=== PATIENT | female | born 1995 | race Hispanic/Latino ===

== ENCOUNTER 2018-11-06 23:27 | Observation (INO) | payer OTHER ==
[~2018-11-06] VITALS: Ht 162.6 cm; Wt 96.6 kg
[2018-11-06 23:58] VITALS: BP 109/54
--- NOTE | 2018-11-06 23:58 | NUR ---
patient is a new admit that arrived via stretcher. patient is awake and talking. patient has been assisted into the bed. bed is in the lowest position and call dodge is within reach. will continue to monitor patient.
[2018-11-07] VITALS: BP 109/54
[2018-11-07] MEDS: SODIUM CHLORIDE 0.9% 1000ML 1,000 ML IV SCH ×3 (01:36→10:38)
[2018-11-07 04:00] VITALS: BP 122/66
--- NOTE | 2018-11-07 06:23 | NUR ---
Spoke with Dr Wagner over the telephone and informed him of the routine consultation. acknowledged consultation.
--- NOTE | 2018-11-07 06:42 | NUR ---
report given to day nurse. patient is resting comfortably in bed. bed is in lowest position and call dodge is within reach.
[2018-11-07 06:46] LABS: BASOPHILS % 0.3 % (0.0-1.0); EOSINOPHILS % 0.2 % (0.0-6.0); HEMATOCRIT 35.3 % (34.2-44.1); HEMOGLOBIN 11.8 g/dL (12.0-16.0); LYMPHOCYTES # (AUTO) 1.1 (1.0-3.2); LYMPHOCYTES % 8.8 % (18.0-39.1); MEAN CORPUSCULAR HEMOGLOBIN 28.4 pg (28-32); MEAN CORPUSCULAR HGB CONC 33.4 g/dL (31-35); MEAN CORPUSCULAR VOLUME 85.1 fL (81-99); MONOCYTES # (AUTO) 0.7 (0.2-0.8); MONOCYTES % 5.8 % (4.4-11.3); NEUTROPHILS # (AUTO) 10.1 (2.1-6.9); NEUTROPHILS % 84.2 % (38.7-80.0); PLATELET COUNT 320 x10e3/uL (140-360); RED BLOOD COUNT 4.15 x10e6/uL (3.6-5.1); RED CELL DISTRIBUTION WIDTH 12.6 % (11.7-14.4)
[2018-11-07 06:51] LABS: BLOOD UREA NITROGEN 8 mg/dL (7-26); BUN/CREATININE RATIO 10 (6-25); CALCIUM 8.5 mg/dL (8.4-10.2); CARBON DIOXIDE 22 mmol/L (22-29); CHLORIDE 111 mmol/L (98-107); CREATININE, SERUM 0.78 mg/dL (0.57-1.11); EST GLOMERULAR FILTRATION RATE > 60 ML/MIN (60-); GLUCOSE 106 mg/dL (74-118); SODIUM 139 mmol/L (136-145)
--- NOTE | 2018-11-07 09:20 | NUR ---
Visit made by the Spiritual Care Department Pastoral Visitor, Geneva Grossman. PV provided pastoral presence, hospitality, and supportive listening. Pastoral Visitor informed pt/family of the scope of [facility] and availability. VALENCIA QUEEN Recovery Operator Helper Spiritual Care Department O: [phone] Pager: [phone] ([phone] number calling from)
[2018-11-07 09:42] VITALS: BP 110/58
[2018-11-07 09:45] VITALS: BP 110/58
[2018-11-07 11:51] LABS: FREE THYROXINE INDEX 2.3289 (1.4-3.8); THYROID STIMULATING HORMONE 1.04 uIU/mL (0.350-4.940)
[2018-11-07 12:00] VITALS: BP 117/73
--- NOTE | 2018-11-07 13:40 | Diagnostic Imaging Report ---
EXAM: Complete Abdominal Ultrasound INDICATION: ^PAIN ^[id number] ^1255 COMPARISON: None. TECHNIQUE: Transverse and longitudinal images of the upper abdomen were obtained. FINDINGS: Liver: Size: 14.8 cm in the right midclavicular line, normal Appearance: Increased echogenicity, smooth contour Mass: No focal masses Spleen: Size: 12.0 cm in length, upper limit of normal Echogenicity: Normal Mass: No focal masses Gallbladder: Stones/Sludge: Small amount of sludge. No echogenic stones. Wall: 0.2 cm Appearance: No wall thickening, pericholecystic fluid or hydrops. Sonographic Amador's Sign: Negative Bile Ducts: Intrahepatic Ducts: No dilatation Extrahepatic Ducts: Common bile duct measures 0.3 cm, no dilatation Pancreas: Obscured by overlying bowel gas. Kidneys: Length: Right 11.7 cm Left 10.8 cm Echogenicity: Normal Collecting System: No hydronephrosis Stone: None Cyst/Mass: None Vessels: Aorta: Visualized portions are normal Inferior Vena Cava: Obscured by overlying bowel gas. Main Portal Vein: 1.1 cm, normal size with hepatopetal flow. Free Fluid: No ascites or pleural effusion IMPRESSION: 1. Small amount of sludge in the gallbladder lumen. No sonographic evidence of cholelithiasis or cholecystitis. 2. Diffusely increased echogenicity of the hepatic parenchyma, consistent with steatosis. Signed by: Dr. Mynor Boyle M.D. on 11/07/2018 1:37 PM
--- NOTE | 2018-11-07 13:56 | Diagnostic Imaging Report ---
EXAMINATION: PA and lateral views of the chest. COMPARISON: None CLINICAL HISTORY: Chest pain, shortness of breath DISCUSSION: Lines/tubes: None. Lungs: The lungs are well inflated and clear. There is no evidence of pneumonia or pulmonary edema. Pleura: There is no pleural effusion or pneumothorax. Heart and mediastinum: Cardiomediastinal silhouette is unremarkable. Pulmonary vasculature is normal. Bones and soft tissues: No acute bony abnormalities. IMPRESSION: No acute cardiopulmonary abnormalities. Signed by: Dr. Mynor Boyle M.D. on 11/07/2018 1:53 PM
[2018-11-07] MEDS: CEFEPIME 2 GM/NS 0.9% 100 ML 100 ML IV SCH (14:21)
[2018-11-07] MEDS: METRONIDAZOLE 500MG/NS 100ML 100 ML IV SCH ×2 (15:02→21:08)
--- NOTE | 2018-11-07 17:19 | Consultation ---
DATE OF CONSULTATION: 11/07/2018 Endocrine Consultation The patient of Dr. Nnamdi Tovar. Thank you very much for referring this patient. HISTORY OF PRESENT ILLNESS: This is a 23-year-old lady was referred to me for evaluation of thyroiditis. 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 She is not on any medication for that. At this time, the patient came to the hospital with history of palpitations and some chest discomfort. On further evaluation, her white count was found to be elevated. The patient is admitted to the hospital for further evaluation. She does have family history of diabetes. PHYSICAL EXAMINATION: GENERAL: Today, the patient is alert, awake, little bit apprehensive. She is moderately overweight. HEENT: Her heart rate is around 78, blood pressure is 120/80 mmHg. HEENT: Essentially unremarkable. Thyroid is palpable. No tenderness. CHEST: Bilateral vesicular breathing. No rales heard. CARDIOVASCULAR: First and second heart sounds. There is no third or fourth heart with the systolic grade 2/6. SKIN: The patient has mild acanthosis nigricans lesions on her neck. CLINICAL IMPRESSION: Palpitations, mild leukocytosis and fever, rule out hyperthyroidism. History of Karla thyroiditis. PLAN: The plan at this time is to do free T3, free T4, TSH, antiperoxidase antibody and continue the supportive treatment for now. Thank you for referring this patient. I will be following this patient with you. MD KARISHMA Hallman/SHANIA /[id number] JEAN-PIERRE
--- NOTE | 2018-11-07 17:30 | NUR ---
recd pt from obs rm 185.via w/c aaox3 denies chest pain,iv infusing to lt ac 18 g.
--- NOTE | 2018-11-07 19:25 | NUR ---
Received change of shift report from AM nurse. Walking rounds completed.
[2018-11-07 20:00] VITALS: BP 129/62
--- NOTE | 2018-11-07 20:00 | NUR ---
Patient request pain meds. No meds ordered for pain. Paged Dr Haley Tovar. No respond from . Will f/u.
[2018-11-07] MEDS ORDERED: PANTOPRAZOLE 40 MG 10ML VIAL IV STA (22:33)
[2018-11-07] MEDS ORDERED: TRAMADOL HCL 50 MG TAB PO PRN (22:45)
[2018-11-08] VITALS: BP 114/57
[2018-11-08] MEDS: CEFEPIME 2 GM/NS 0.9% 100 ML 100 ML IV SCH (01:00)
[2018-11-08 04:00] VITALS: BP 119/56
[2018-11-08] MEDS: METRONIDAZOLE 500MG/NS 100ML 100 ML IV SCH (05:35)
[2018-11-08 08:22] VITALS: BP 95/46
[2018-11-08 08:38] VITALS: BP 95/46
[2018-11-08] MEDS ORDERED: PANTOPRAZOLE 40 MG 10ML VIAL IV SCH (09:00)
[2018-11-08 11:34] VITALS: BP 123/63
--- NOTE | 2018-11-08 13:45 | NUR ---
pt discharged home ,iv dcd without redness or swelling,prescriptions and instructions given ,pt ambulated to auto
--- NOTE | 2018-11-08 14:07 | NUR ---
PT DISCUSSED IN BARRIER ROUNDS; PLAN IS TO DISCHARGE TODAY
[2018-11-13] MEDS ORDERED: VITAMIN D1000 UNI1 PO (12:27)
[2018-11-13] MEDS ORDERED: VITAMIN B-121000 MC2 PO (12:27)
[2018-11-13] MEDS ORDERED: PANTOPRAZOLE SO40 MG PO (12:27)
[2018-11-13] MEDS ORDERED: VITAMIN B-125000 MCG (12:27)
[2018-11-13] MEDS ORDERED: CEFUROXIME250 MG PO (12:27)
== END 2018-11-08 13:55 | disposition home or self-care (01) ==
LOC: IMCU 23:45 → MED/SURG3 11-07 17:05
DX: A41.9 Sepsis, unspecified organism (principal); R00.2 Palpitations; E06.3 Autoimmune thyroiditis; E05.90 Thyrotoxicosis, unspecified without thyrotoxic crisis or storm; E66.8 Other obesity; Z68.36 Body mass index [BMI] 36.0-36.9, adult; K21.9 Gastro-esophageal reflux disease without esophagitis; E66.01 Morbid (severe) obesity due to excess calories; K76.0 Fatty (change of) liver, not elsewhere classified
CPT/HCPCS: 36415; 71046; 76700; 80048; 83036; 83605; 84436; 84443; 84479; 84481; 85025; 85651; 86140; 86376; 87040; 96360; 96361 ×2; C9113 ×2; G0378 ×3; J7030

== ENCOUNTER → 2018-11-17 | Day surgery (SDC) | payer OTHER ==
[~2018-11-17] MED LIST: CEFUROXIME250 MG PO; LIDOCAINE HCL 2% LOCAL INJ 5 ML SDV VIAL INJ ONE; MIDAZOLAM HCL 2 MG/2 ML VIAL ONE; PANTOPRAZOLE SO40 MG PO; PROPOFOL IV EMULSION 10 MG/ML 50 ML VIAL ONE; VITAMIN B-121000 MC2 PO; VITAMIN B-125000 MCG; VITAMIN D1000 UNI1 PO
[2018-11-17 08:40] VITALS: BP 117/78
--- OUTSIDE RECORDS SUMMARY | 2018-11-17 11:05 | XMS REPORT ---
Author Author [facility] Address Unknown Phone Unavailable Care Team Providers Care Customer Trainer Name Role Phone PHILL NAYAK Unavailable Unavailable Problems This patient has no known problems. Allergies, Adverse Reactions, Alerts This patient has no known allergies or adverse reactions. Medications This patient has no known medications. Results Test Description Test Time Test Comments Text Results Atomic Results Result Comments CHEST 2 VIEWS 2018-11-07 13:52:00 [place] [address] Patient Name: LELAND CROCKETT MR #: [id number] : 1995 Age/Sex: 23/F Req #: [id number] [facility] Physician: PHILL NAYAK MD Ordered by: PHILL NAYAK MD Report #: [id number] Location: [facility] Room/Bed: [place] [address] Procedure: [id number] DX/CHEST 2 VIEWS Exam Date: 11/07/18 Exam Time: 1258 REPORT STATUS: Signed EXAMINATION: PA and lateral views of the chest. C OMPARISON: None CLINICAL HISTORY: Chest pain, shortness of breath DISCUSSION: Lines/tubes: None. Lungs: The lungs are well inflated and clear. There is no evidence of pneumonia or pulmonary edema. Pleura: There is no pleural effusion or pneumothorax. Heart and mediastinum: Cardiomediastinal silhouette is unremarkable. Pulmonary vasculature is normal. Bones and soft tissues: No acute bony abnormalities. IMPRESSION: No acute cardiopulmonary abnormalities. Signed by: Dr. Kevyn Boyle M.D. on 11/07/2018 1:53 PM Dictated By: KEVYN BOYLE MD [id number] Transcribed By: WHITLEY on 11/07/18 1357 COPY TO: PHILL NAYAK MD US ABDOMEN COMPLETE 2018-11-07 13:34:00 [place] [address] Patient Name: LELAND CROCKETT MR #: [id number] : 1995 Age/Sex: 23/F Req #: [id number] [facility] Physician: PHILL NAYAK MD Ordered by: PHILL NAYAK MD Report #: [id number] Location: [facility] Room/Bed: [place] [address] Procedure: [id number] US/US ABDOMEN COMPLETE Exam Date: 11/07/18 Exam Time: 1255 REPORT STATUS: Signed EXAM: Complete Abdominal Ultrasound INDICATION: PAIN [id number] COMPARISON: None. TECHNIQUE: Transverse and longitudinal images of the upper abdomen were obtained. FINDINGS: Liver: Size: 14.8 cm in the right midclavicular line, normal Appearance: Increased echogenicity, smooth contour Mass: No focal masses Spleen: Size: 12.0 cm in length, upper limit of normal Echogenicity: Normal Mass: No focal masses Gallbladder: Stones/Sludge: Small amount of sludge. No echogenic stones. Wall: 0.2 cm Appearance: No wall thickening, pericholecystic fluid or hydrops. Sonographic Amador's Sign: Negative Bile Ducts: Intrahepatic Ducts: No dilatation Extrahepatic Ducts: Common bile duct measures 0.3 cm, no dilatation Pancreas: Obscured by overlying bowel gas. Kidneys: Length: Right 11.7 cm Left 10.8 cm Echogenicity: Normal Collecting System: No hydronephrosis Stone: None Cyst/Mass: None Vessels: Aorta: Visualized portions are normal Inferior Vena Cava: Obscured by overlying bowel gas. Main Portal Vein: 1.1 cm, normal size with hepatopetal flow. Free Fluid: No ascites or pleural effusion IMPRESSION: 1. Small amount of sludge in the gallbladder lumen. No sonographic evidence of cholelithiasis or cholecystitis. 2. Diffusely increased echogenicity of the hepatic parenchyma, consistent with steatosis. Signed by: Dr. Kevyn Boyle M.D. on 11/07/2018 1:37 PM Dictated By: KEVYN BOYLE MD [id number] Transcribed By: WHITLEY on 11/07/18 2763 COPY TO: PHILL NAYAK MD
--- NOTE | 2019-01-03 07:15 | Operative Report ---
DATE OF PROCEDURE: 11/17/2018 SURGEON: Adolfo Tovar MD PROCEDURE: EGD note. REFERRING PHYSICIAN: Mitchell Lozano DO. INDICATIONS FOR EGD: Upper abdominal pain, bloating, acid reflux. MEDICATIONS: The patient was done under MAC, please see anesthesiologist's note. PROCEDURE IN DETAIL: With the patient in left lateral decubitus position, a flexible fiberoptic Olympus gastroscope was introduced into the esophagus under direct visualization without any difficulty. There was some patchy erythema noted in distal esophagus. A minute nodule was noted in distal esophagus, also that was biopsied. The scope was then advanced with ease into the stomach. Mucosa overlying the antrum revealed some patchy areas of erythema and low-grade edema. A large amount of retained undigested food was also present in the stomach precluding visualization of the proximal two-thirds of the body as well as the majority of the fundus. The pylorus was intubated with ease and the scope was advanced all the way to the second portion of the duodenum. Biopsies were obtained to rule out sprue from the second portion and duodenal bulb. Also, a minute nodule was noted in the proximal second portion that was biopsied. The scope was then withdrawn back into the stomach and retroflexed, and whatever was visualized of the fundus of the stomach and the cardia appeared to be within normal limits. The scope was then straightened out, it was subsequently withdrawn. The patient tolerated procedure well. IMPRESSION: 1. Distal esophagitis, mild. 2. Minute nodule, distal esophagus, biopsied. 3. Large amount of retained undigested food in stomach precluding visualization of proximal two-thirds of the body as well as significant part of the fundus. 4. Gastritis, biopsied, biopsies sent to stain for H pylori. 5. Rule out sprue. 6. Minute nodule, proximal second portion, biopsied. PLAN: Follow up histology. Initiate Protonix 40 mg one p.o. q.a.m. a.c. The patient will need a followup EGD after a clear liquid diet x24 hours to visualize parts of the stomach that were not seen on this exam. Adolfo Tovar MD [facility]/[facility] /[id number] cc: Mitchell Lozano DO
== END | disposition home or self-care (01) ==
LOC: OR 05:50
PROVIDERS: ATTEND Internal Medicine Gastroenterology
DX: K21.0 Gastro-esophageal reflux disease with esophagitis (principal); K22.70 Barrett's esophagus without dysplasia; R10.30 Lower abdominal pain, unspecified; R14.0 Abdominal distension (gaseous); K59.00 Constipation, unspecified; E06.3 Autoimmune thyroiditis; K76.0 Fatty (change of) liver, not elsewhere classified; Z87.898 Personal history of other specified conditions; K29.70 Gastritis, unspecified, without bleeding; T18.2XXA Foreign body in stomach, initial encounter; K29.50 Unspecified chronic gastritis without bleeding
CPT/HCPCS: 43239; 81025; J2001; J2250; J2704